=== PATIENT | female | born 1960 | race African-American/Black ===

== ENCOUNTER 2021-08-25 10:36 | Emergency (ER) | payer BC ==
[2021-08-25] MEDS ORDERED: Ketorolac Tromethamine 30 MG/ML VIAL ONE (11:40)
== END 2021-08-25 12:00 | disposition home or self-care (01) ==
LOC: ERS 10:36
DX: M54.50 Low back pain, unspecified (principal); I10 Essential (primary) hypertension; Z85.3 Personal history of malignant neoplasm of breast; Z79.899 Other long term (current) drug therapy
CPT/HCPCS: 96372; 99283; J1885

== ENCOUNTER 2023-04-20 13:44 | Outpatient (CLI) | payer OTHER | END 2023-04-20 13:45 | disposition home or self-care (01) | LOC: BICMAMMO 13:44 | PROVIDERS: ATTEND Internal Medicine Hematology & Oncology | DX: Z13.820 Encounter for screening for osteoporosis (principal); C50.112 Malignant neoplasm of central portion of left female breast; T38.6X5D Adverse effect of antigonadotrophins, antiestrogens, antiandrogens, not elsewhere classified, subsequent encounter | CPT/HCPCS: 77080 ==